=== PATIENT | male | born 1955 | race Caucasian/White ===

== ENCOUNTER 2019-06-09 11:55 | Day surgery (SDC) | payer BC ==
[~2019-06-09] VITALS: Ht 190.5 cm; Wt 102.1 kg
[~2019-06-09 11:55] MED LIST: DICLOFENAC POTA50 MG PO; ROBAXIN-750750 MG PO
[2019-06-09] MEDS ORDERED: MULTIVITAMINS1 EAC7 PO (12:15)
[2019-06-09] MEDS ORDERED: ACIDOPHILUS1 EAC4 PO (12:15)
--- NOTE | 2019-06-09 13:40 | NUR ---
06/09/19 1340 Ashley Edmondson 1333 PATIENT ARRIVES TO PACU AWAKE. DENIES PAIN OR NAUSEA. RESP EVEN AND UNLABORED, ROOM AIR SATS >90%.
--- NOTE | 2019-06-10 08:36 | OR ---
[facility] [address], [place] [address] Signed DATE OF OPERATION: 06/09/2019 SURGEON: Sulma Monroe MD PREOPERATIVE DIAGNOSIS: History of diverticulosis, colon surveillance. POSTOPERATIVE DIAGNOSES: 1. Diverticulosis of colon. 2. Small sessile polyp of sigmoid (excised). 3. Internal hemorrhoids with mild proctitis. PROCEDURE: Total colonoscopy to cecum with hot snare polypectomy x1 and biopsy of rectum. ANESTHESIA: Intravenous sedation, fentanyl 100 mcg, and Versed 5 mg. INDICATION: This 63-year-old white man is a patient of Francesco Oconnell MD, and is here for surveillance colonoscopy. He underwent colonoscopy seven years ago where he was found to have diverticulosis. He has no family history of colon cancer and is symptom free, currently of any bleeding, diarrhea, or constipation. He is admitted at this time to undergo colonoscopy. He understands the risks of bleeding, infection, and perforation. FINDINGS: The prep was excellent. Complete colonoscopy was undertaken of the cecum without question. He has scattered diverticula throughout the sigmoid and left colon. There was a sessile polyp about 5 or 6 mm in the sigmoid, which was excised with hot snare polypectomy technique. There were internal hemorrhoidal changes and mild proctitis as well. There were no other findings of concern. DESCRIPTION OF PROCEDURE: The patient was brought to the endoscopy suite and placed in lateral decubitus position, given intravenous sedation to the point of slurred speech and nystagmus. Full cardiopulmonary monitoring was maintained. Digital rectal examination was normal. An Olympus video colonoscope was passed in the rectum and manipulated throughout the colon, noting numerous diverticula of the sigmoid and left colon. The scope was ultimately advanced to the cecum. The ileocecal valve and appendiceal orifice were normal. The scope was withdrawn from that point and examination undertaken showing no Electronically Signed By: SULMA MONROE MD 06/10/19 0836 PATIENT NAME: IGNACIO HOPE OPERATIVE REPORT DATE OF : 57 REPORT #: [id number] PHYSICIAN: SULMA MONROE MD PCP: FRANCESCO OCONNELL MD REPORT IS CONFIDENTIAL AND NOT TO BE RELEASED WITHOUT AUTHORIZATION [facility] [address], [place] [address] Signed sign of abnormality until approximately the rectosigmoid where a small sessile polyp was noted. Narrow band imaging was undertaken confirming this to possibly be an adenoma. Using hot snare polypectomy technique, the polyp was excised. The specimen was recovered and passed for Pathology. Further withdrawal was undertaken. Retroflexed view of the rectum confirmed internal hemorrhoidal changes as well as mild proctitis. Biopsies were obtained. The scope was straightened, withdrawn, removed, and the patient was taken to recovery room in good condition. CONCLUDING DIAGNOSES: 1. Diverticulosis. 2. Polyp of rectosigmoid, excised. 3. Internal hemorrhoids. PLAN: Recommend high-fiber diet. We will recommend repeat colonoscopy in 2-3 years if the polyp was proven to be adenomatous. If hyperplastic, 10 years is reasonable. Sooner of course if problems. MD RICCO Wells/MIGELL /[id number] cc: Francesco Oconnell MD Copies: ~ Electronically Signed By: SULMA MONROE MD 06/10/19 0836 PATIENT NAME: HERMINIAIGNACIO OPERATIVE REPORT DATE OF : 57 REPORT #: [id number] PHYSICIAN: SULMA MONROE MD PCP: FRANCESCO OCONNELL MD REPORT IS CONFIDENTIAL AND NOT TO BE RELEASED WITHOUT AUTHORIZATION
== END 2019-06-09 14:00 | disposition home or self-care (01) ==
LOC: OPS 11:55 → DS 13:00 → OPS 13:00
PROVIDERS: Surgery
PROC: 0DBP8ZX Excision of Rectum, Via Natural or Artificial Opening Endoscopic, Diagnostic (ICD-10-PCS; 2019-06-09)
PROC: 0DBN8ZZ Excision of Sigmoid Colon, Via Natural or Artificial Opening Endoscopic (ICD-10-PCS; principal; 2019-06-09 13:00)
DX: Z12.11 Encounter for screening for malignant neoplasm of colon (principal); K63.5 Polyp of colon; K57.30 Diverticulosis of large intestine without perforation or abscess without bleeding; K64.8 Other hemorrhoids; K62.89 Other specified diseases of anus and rectum
CPT/HCPCS: 99153; G0500; J2250; J3010; J7120